=== PATIENT | female | born 2000 | race African-American/Black ===

== ENCOUNTER 2022-01-29 17:43 | Inpatient (IN) | payer OTHER, SELFPAY ==
[2022-01-29 18:00] VITALS: BP 109/70; PULSE 82; RESP 17; TEMP 36.7; O2SAT 100
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
[2022-01-29] MEDS: cloNIDine HCL 0.1 MG TABLET 0.05 MG PO (22:26)
[2022-01-30 06:00] VITALS: BP 107/56; PULSE 100; RESP 18; TEMP 36.8; O2SAT 99
[2022-01-30 08:32] LABS: Cholesterol 188 mg/dL; HDL Cholesterol 56 mg/dL; LDL Cholesterol Calculated 113 mg/dl; Magnesium 1.9 mg/dL (1.6-2.6); Triglycerides 98 mg/dL
[2022-01-30 08:36] LABS: Estimated Average Glucose 103 mg/dL; Hemoglobin A1c % 5.2 %
[2022-01-30 08:54] LABS: Free T4 (Free Thyroxine) 1.38 ng/dL (0.71-1.85); Thyroid Stimulating Hormone 0.91 uIU/mL (0.32-4.0)
[2022-01-30] MEDS: Sertraline HCL 25 MG TABLET PO (09:05)
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
[2022-01-30 12:07] LABS: Folate 18.1 ng/mL (> or = 4.0); Vitamin B12 350 pg/mL (200-900)
[2022-01-30 22:56] VITALS: BP 134/82; PULSE 99; RESP 16; TEMP 36.7; O2SAT 100
[2022-01-30] MEDS: cloNIDine HCL 0.1 MG TABLET 0.05 MG PO (23:02)
[2022-01-31] MEDS: hydrOXYzine HCL 25 MG TABLET PO (04:21)
[2022-01-31 08:45] VITALS: BP 88/56; PULSE 83; RESP 18; TEMP 36.4; O2SAT 100
[2022-01-31 08:50] VITALS: BP 90/59
[2022-01-31 10:15] VITALS: BP 113/55
[2022-01-31] MEDS: Sertraline HCL 25 MG TABLET PO (10:24)
[2022-01-31 10:50] VITALS: BP 96/52
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
[2022-01-31 22:00] VITALS: BP 118/70; PULSE 84; RESP 16; TEMP 36.6; O2SAT 98
[2022-01-31] MEDS: cloNIDine HCL 0.1 MG TABLET 0.05 MG PO (22:05)
[2022-02-01 08:16] VITALS: BP 111/55; PULSE 66; RESP 16; TEMP 36.3; O2SAT 99
[2022-02-01] MEDS: Sertraline HCL 25 MG TABLET PO (08:16)
--- NOTE | 2022-02-01 12:14 | MHC.CLN ---
NUTRITION CONSULT FOR WEIGHT LOSS. VISITED WITH PATIENT ON THE UNIT. DESCRIBED PAST EPISODES OF DISORDERED EATING IN THAT WILL EAT PACKAGES OF SNACKS ONLY-LIMITING CALORIES AND NUTRITIONAL INTAKE. REPORTS USUAL WEIGHT RANGE OF 115-135#. APPEARS WELL NOURISHED. REPORTS THAT EATING THREE MEALS PER DAY HERE, BUT DOES NOT EAT 100%. AWARE OF AVAILABILITY OF SNACKS ON UNIT. GSR ASSISTED WITH MENU SELECTIONS AND ADVISED TO WORK WITH HIM FOR MEAL PREFERENCES. PATIENT DOES NOT WANT SUPPLEMENT AT THIS TIME. NO ADDITIONAL NUTRITION INTERVENTIONS AT THIS TIME.
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
[2022-02-01 20:40] VITALS: BP 121/88; PULSE 91; RESP 16; TEMP 36.6; O2SAT 98
[2022-02-01] MEDS: traZODone HCL 50 MG TABLET PO (22:08)
[2022-02-01] MEDS: cloNIDine HCL 0.1 MG TABLET 0.05 MG PO (22:08)
--- NOTE | 2022-02-02 02:22 | PC.NURSE ---
Nurse request to Dr. Rivera if she could pass on to day shift that the H&P needs to be done for this patient. She was tiger texted at 0042 on 04/10/22
[2022-02-02 08:57] VITALS: BP 121/96; PULSE 82; RESP 14; TEMP 36.7; O2SAT 100
[2022-02-02] MEDS: Sertraline HCL 25 MG TABLET PO (09:00)
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
[2022-02-02 20:30] VITALS: BP 135/82; PULSE 89; RESP 18; TEMP 36.6; O2SAT 100
[2022-02-02] MEDS: traZODone HCL 50 MG TABLET PO (20:40)
[2022-02-02] MEDS: cloNIDine HCL 0.1 MG TABLET 0.05 MG PO (20:40)
[2022-02-03 08:23] VITALS: BP 107/51; PULSE 81; TEMP 36.7
[2022-02-03] MEDS: Sertraline HCL 25 MG TABLET PO (08:36)
--- NOTE | 2022-02-03 10:16 | P.CONHOSP_ITS ---
History of Present Illness Data of Consult Service Date: 02/03/22 Primary Care Provider: Unknown Physician HPI 21/F with history MDD, DONNIE, PTSD presently admitted to inpatient Psych due increased anxiety, depression with intrusive thought of SI. She is presently enroled in master's of [employer] health program at [employer] and is overwhelm with school work in addition to stress from tension with her mother at home. She voices no acute medical issues at this. No weakness, no dizziness, no short of breath. Review of Systems Review of Systems: Gen: no fever Resp: no sob, no cough CV: no chest, no PERALTA, no leg edema GI: No n/v, no abd pain Neuro: No confusion Psych: voiced no SI at the time eval Yes all other systems are reviewed and are negative [facility] Medical History Anemia Social History Household Members: Family Housing: House Do you presently have visiting nurse or other home services: No Patient Tobacco Use Status: Never used Tobacco Use of substances other than those prescribed or required for medical reasons: No Currently Displaying Signs/Symptoms of Drug Intoxication Withdrawal: No Have you been hit, kicked, punched, or otherwise hurt by someone within the past year? If so, by whom?: No Do you feel safe in your current relationship?: No Is there a partner from a previous relationship who is making you feel unsafe now?: No Are you made to feel afraid or neglected: No Advance Directives: No Advance Directives Information Provided: No Advance Directives on File: No Do you have thoughts of harming others: None Do you have a plan to hurt others: No Plan Recently lost weight without trying: Yes How much weight loss: 2-13 pounds Eating poorly because of decreased appetite: Yes Nutrition screen score: 4 Nutrition Risks: Poor intake 0-25% >4 days Patient : No : No Poor oral hygiene: No service: No Sexual orientation: Bisexual Meds Allergies Allergy/AdvReac Type Severity Reaction Status Date / Time No Known Allergies Allergy Verified 01/29/22 18:17 Active Medications: Current Medications Acetaminophen (Acetaminophen 325 Mg Tablet) 650 mg PO Q6H PRN PRN Reason: Headache/Pain Mild Scale (1-3) Al Hydroxide/Mg Hydroxide (Magnesium Hydrox/Alum Hydrox 30 Ml Oral.Susp) 30 ml PO Q6H PRN PRN Reason: Heartburn/Nausea Clonidine HCl (Clonidine Hcl 0.1 Mg Tablet) 0.05 mg PO BEDTIME SHABBIR; Protocol Last Admin: 02/02/22 20:40 Dose: 0.05 mg Hydroxyzine HCl (Hydroxyzine Hcl 25 Mg Tablet) 25 mg PO Q6H PRN PRN Reason: Anxiety Last Admin: 01/31/22 04:21 Dose: 25 mg Magnesium Hydroxide (Milk Of Magnesia 30 Ml Oral.Susp) 30 ml PO DAILY PRN PRN Reason: Constipation Sertraline HCl (Sertraline Hcl 25 Mg Tablet) 25 mg PO DAILY [facility] Last Admin: 02/03/22 08:36 Dose: 25 mg Trazodone HCl (Trazodone Hcl 50 Mg Tablet) 50 mg PO BEDTIME [facility] Last Admin: 02/02/22 20:40 Dose: 50 mg Trazodone HCl (Trazodone Hcl 25 Mg Halftab) 25 mg PO BEDTIME PRN PRN Reason: Insomnia Physical Exam Vital Signs and Narrative: Vital Signs: Last Vital Signs Temp 98.1 F 02/03/22 08:23 Pulse 81 02/03/22 08:23 Resp 18 02/02/22 20:30 BP 107/51 L 02/03/22 08:23 Pulse Ox 100 02/02/22 20:30 O2 Del Method 02/02/22 20:30 Const: Other: Constitutional: Alert, in no distress Mental Status: Oriented to person, place and time. Eyes: Pupils are equal, round and reactive to light. Ear, Nose and Throat: Oropharynx clear, mucous membranes moist. Respiratory: Clear to auscultation. No wheezing, rales or rhonchi. Cardiovascular: S1 S2 regular. No murmurs, rubs or gallops. Gastrointestinal: Abdomen soft, non-tender, non-distended. Normal bowel sounds.? Neurologic: Cranial nerves II-XII grossly intact. No focal neurological deficits. Moves all extremities spontaneously.? Skin: No rashes or lesions.? Musculoskeletal: No cyanosis or clubbing. Psychiatric: depressed mood, no SI Assessment and Plan (1) MDD (major depressive disorder), recurrent episode, moderate: Status: Acute (2) Post traumatic stress disorder (PTSD): Status: Acute (3) DONNIE (generalized anxiety disorder): Status: Acute Plan 21/F with history MDD, DONNIE, PTSD presently admitted to inpatient Psych due increased anxiety, depression with intrusive thought of SI, no acute medical issues. Plan: kindly continue ongoing current Psychiatric care. Please inform us should any acute issue arise. Thanks
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
[2022-02-03 22:00] VITALS: BP 109/63; PULSE 84; TEMP 36.8; O2SAT 96
[2022-02-03] MEDS: cloNIDine HCL 0.1 MG TABLET 0.05 MG PO (22:06)
[2022-02-03] MEDS: traZODone HCL 50 MG TABLET PO (22:08)
[2022-02-04 08:00] VITALS: BP 135/61; PULSE 84; RESP 18; TEMP 36.8; O2SAT 100
[2022-02-04] MEDS: Sertraline HCL 25 MG TABLET PO (08:44)
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
== END 2022-02-04 11:35 | disposition home or self-care (01) | DRG 751 ==
PROVIDERS: Registered Nurse; Admitting Provider Psychiatry & Neurology Psychiatry; Visit Provider Psychiatry & Neurology Psychiatry
DX: F33.1 Major depressive disorder, recurrent, moderate (principal); R45.851 Suicidal ideations; F41.1 Generalized anxiety disorder; F43.10 Post-traumatic stress disorder, unspecified; Z23 Encounter for immunization; Z79.899 Other long term (current) drug therapy
CPT/HCPCS: 36415; 80061; 82607; 82746; 83036; 83735; 84439; 84443; 90686; 90792